=== PATIENT | male | born 1950 ===

== ENCOUNTER 2025-04-25 06:27 | Day surgery (SDC) | payer MEDICARE, SELFPAY | END 2025-04-25 12:16 | disposition home or self-care (01) | LOC: GI 06:27 | PROVIDERS: ATTENDING PHYSICIAN Internal Medicine Gastroenterology | DX: Z12.11 Encounter for screening for malignant neoplasm of colon (principal); D12.3 Benign neoplasm of transverse colon; D12.5 Benign neoplasm of sigmoid colon; K63.5 Polyp of colon; K57.30 Diverticulosis of large intestine without perforation or abscess without bleeding; K64.9 Unspecified hemorrhoids; Z86.0100 Personal history of colon polyps, unspecified | CPT/HCPCS: 45385; 45380; 88305 ==